=== PATIENT | female | born 1960 | race Caucasian/White ===

== ENCOUNTER 2017-04-16 11:11 | Emergency (ER) | payer MEDICAID ==
[~2017-04-16] VITALS: Ht 154.9 cm; Wt 67.1 kg
[2017-04-16 11:15] VITALS: BP_SYST 159
--- NOTE | 2017-04-16 11:15 | NUR ---
Placed in room 08. Placed on desk monitor, blood pressure machine and pulse oximeter. To gown for exam. Side rails up. Report given to ZAHIRA Quintanilla.
--- NOTE | 2017-04-16 11:20 | NUR ---
ER at bedside examining patient.
--- NOTE | 2017-04-16 11:30 | NUR ---
Pt complains of pounding heart beat since this morning, pt complains of SOB in the morning, pt states "feels pounding on her chest", denies pain. Pt states the pain is not as strong now and is able to breath better. No other injuries/complaints per pt or noted.
[2017-04-16] MEDS ORDERED: LORazepam 1 MG TABLET PO ONE (11:45)
[2017-04-16 12:12] LABS: BASOPHILS # (AUTO) 0.1 K/uL (0.0-0.2); BASOPHILS % (AUTO) 0.7 % (0.0-2.0); EOSINOPHILS # (AUTO) 0.4 K/uL (0.0-0.4); EOSINOPHILS % (AUTO) 4.2 % (0.0-4.0); HEMATOCRIT 41.3 % (36-48); HEMOGLOBIN 13.8 g/dL (12.0-16.0); LYMPHOCYTES # (AUTO) 3.2 K/uL (1.0-5.5); LYMPHOCYTES % (AUTO) 35.6 % (20.5-51.5); MEAN CORPUSCULAR HEMOGLOBIN 31 pg (27-31); MEAN CORPUSCULAR HGB CONC 34 % (32-36); MEAN CORPUSCULAR VOLUME 94 fL (79.0-98.0); MONOCYTES # (AUTO) 0.7 K/uL (0.0-1.0); MONOCYTES % (AUTO) 7.6 % (1.7-9.3); NEUTROPHILS # (AUTO) 4.6 K/uL (1.8-7.7); NEUTROPHILS % (AUTO) 51.9 % (40.0-70.0); PLATELET COUNT (AUTO) 297 K/uL (130-430); RED BLOOD CELL COUNT(AUTO) 4.41 MIL/uL (4.2-6.2); RED CELL DISTRIBUTION WIDTH 12.1 % (9.0-15.0)
--- NOTE | 2017-04-16 12:30 | NUR ---
Pt is resting comfortably in bed with no noted distress or discomfort.
[2017-04-16 12:33] LABS: CALCIUM 9.3 mg/dL (8.4-11.0); CREATININE 0.64 mg/dL (0.55-1.30); POTASSIUM 4.5 mmol/L (3.5-5.1)
[2017-04-16 12:38] LABS: TOTAL BILIRUBIN 0.2 mg/dL (0.0-1.0); TOTAL PROTEIN, SERUM 7.2 g/dL (6.4-8.3)
--- NOTE | 2017-04-16 13:47 | NUR ---
MD ordered more lab work and waiting for results, pt is aware
--- NOTE | 2017-04-16 14:35 | NUR ---
Pt is resting comfortably in bed with no noted distress or discomfort
--- NOTE | 2017-04-16 15:01 | NUR ---
Patient given written and verbal discharge instructions and verbalizes understanding. ER MD discussed with patient the results and treatment provided. Patient in stable condition. ID arm band removed. No Rx given. Patient educated on pain management and to follow up with PMD. Pain Scale 1. Opportunity for questions provided and answered.
[2017-04-16 15:12] VITALS: BP_SYST 135
== END 2017-04-16 15:12 | disposition home or self-care (01) ==
LOC: SED 11:11
DX: F41.9 Anxiety disorder, unspecified (principal); Z88.0 Allergy status to penicillin; Z88.8 Allergy status to other drugs, medicaments and biological substances
CPT/HCPCS: 36415; 71010; 80053; 83880; 84484; 85025; 93005; 99285

== ENCOUNTER 2017-11-28 18:12 | Inpatient (IN) | payer MEDICAID ==
[~2017-11-28] VITALS: Ht 154.9 cm; Wt 64.9 kg
[2017-11-28 18:17] VITALS: BP_SYST 147
[2017-11-28] MEDS ORDERED: MORPHINE 4 MG/ML INJ. SYRINGE IVP ONE ×2 (20:00→21:15)
[2017-11-28] MEDS ORDERED: ONDANSETRON HCL 4 MG/2 ML VIAL IVP ONE ×2 (20:00→21:15)
[2017-11-28] MEDS ORDERED: NACL 0.9% 1,000 ML IV ONE (20:00)
[2017-11-28] MEDS ORDERED: MORPHINE SULFATE 10 MG/ML VIAL ONE ×2 (20:16→21:22)
[2017-11-28 20:39] LABS: BILIRUBIN,URINE NEGATIVE (NEGATIVE); BLOOD, URINE NEGATIVE (NEGATIVE); CLARITY/URINE HAZY (CLEAR); COLOR,URINE YELLOW (YELLOW); GLUCOSE,URINE 3+ (NEGATIVE); KETONES,URINE NEGATIVE (NEGATIVE); LEUKOCYTE ESTERASE ,URINE 1+ (NEGATIVE); NITRITE, URINE NEGATIVE (NEGATIVE); PH,URINE 6.5 (5.0-8.0); PROTEIN URINE NEGATIVE (NEGATIVE); UROBILINOGEN,URINE 0.2 (0.2-1.0)
[2017-11-28 20:46] LABS: BACTERIA,URINE MODERATE /HPF (None Seen); RBC,URINE NONE SEEN /HPF (0-3)
[2017-11-28 20:47] LABS: BASOPHILS # (AUTO) 0.1 K/uL (0.0-0.2); BASOPHILS % (AUTO) 0.6 % (0.0-2.0); EOSINOPHILS # (AUTO) 0.1 K/uL (0.0-0.4); EOSINOPHILS % (AUTO) 0.7 % (0.0-4.0); HEMATOCRIT 43.9 % (36-48); HEMOGLOBIN 14.4 g/dL (12.0-16.0); LYMPHOCYTES % (AUTO) 36.2 % (20.5-51.5); MEAN CORPUSCULAR HEMOGLOBIN 31 pg (27-31); MEAN CORPUSCULAR HGB CONC 33 % (32-36); MEAN CORPUSCULAR VOLUME 94 fL (79.0-98.0); MONOCYTES # (AUTO) 0.5 K/uL (0.0-1.0); MONOCYTES % (AUTO) 6.1 % (1.7-9.3); NEUTROPHILS # (AUTO) 4.7 K/uL (1.8-7.7); NEUTROPHILS % (AUTO) 56.4 % (40.0-70.0); PLATELET COUNT (AUTO) 393 K/uL (130-430); RED BLOOD CELL COUNT(AUTO) 4.68 MIL/uL (4.2-6.2); RED CELL DISTRIBUTION WIDTH 11.7 % (9.0-15.0); WHITE BLOOD COUNT (AUTO) 8.4 K/uL (4.8-10.8)
[2017-11-28 20:47] LABS: MUCUS,URINE None Seen /LPF (None Seen); YEAST,URINE Few /HPF (None Seen)
[2017-11-28 20:55] LABS: CALCIUM 9.9 mg/dL (8.4-11.0); CREATININE 0.83 mg/dL (0.55-1.30); POTASSIUM 3.7 mmol/L (3.5-5.1)
[2017-11-28 20:59] LABS: ALBUMIN 4.3 g/dL (3.4-4.8); TOTAL BILIRUBIN 0.3 mg/dL (0.0-1.0)
[2017-11-28] MEDS ORDERED: DIPHENHYDRAMINE INJ 50 MG/ML VIAL IVP ONE (21:15)
[2017-11-28] MEDS ORDERED: EMPA10TA PO (21:32)
[2017-11-28] MEDS: NACL 0.9% 1,000 ML IV SCH (21:56)
[2017-11-28] MEDS ORDERED: DEXTROSE 50% JECT 50 ML DISP.SYRIN IVP PRN (22:00)
[2017-11-28] MEDS ORDERED: MORPHINE 2 MG/ML INJ. SYRINGE IVP PRN (22:00)
[2017-11-28] MEDS ORDERED: LEVOFLOXACIN 500 MG/D5W 100 ML IV ONE ×2 (22:15→23:38)
[2017-11-28 22:21] VITALS: BP_SYST 143
[2017-11-28] MEDS ORDERED: MINERAL OIL 30 ML UDC PO ONE (22:30)
[2017-11-28] MEDS ORDERED: METOCLOPRAMIDE HCL 10 MG/2 ML VIAL IVP PRN (22:30)
[2017-11-28] MEDS ORDERED: HYDR-4100 PO (23:03)
[2017-11-28] MEDS ORDERED: CIPR-211 PO (23:03)
[2017-11-28] MEDS ORDERED: HYDROmorphone 1 MG INJ. 1 MG/ML AMPUL IVP ONE (23:30)
[2017-11-29 00:04] LABS: BARBITURATE, URINE NEGATIVE (NEG <=200); BENZODIAZEPINE, URINE NEGATIVE (NEG <=150); CANNABINOID, URINE NEGATIVE (NEG <=50); COCAINE, URINE NEGATIVE (NEG <=150); METHAMPHETAMINES SCREEN,URINE NEGATIVE (NEG <=500); PHENCYCLIDINE SCREEN,URINE NEGATIVE (NEG <=25); URINE AMPHETAMINE NEGATIVE (NEG <=500); URINE METHADONE NEGATIVE (NEG <=200)
[2017-11-29 00:05] LABS: OPIATE, URINE POSITIVE (NEG <=100); UR TRICYCLIC ANTIDEPRESSANTS NEGATIVE (NEG <=300); URINE OXYCODONE SCREEN NEGATIVE (NEG <=100); URINE PROPOXYPHENE SCREEN NEGATIVE (NEG <=300)
[2017-11-29] MEDS: ONDANSETRON HCL 4 MG/2 ML VIAL IVP PRN ×2 (01:00→05:55)
[2017-11-29 02:46] VITALS: BP_SYST 148
[2017-11-29 05:52] LABS: BASOPHILS % (AUTO) 0.5 % (0.0-2.0); EOSINOPHILS # (AUTO) 0.1 K/uL (0.0-0.4); EOSINOPHILS % (AUTO) 1.4 % (0.0-4.0); HEMATOCRIT 39.2 % (36-48); HEMOGLOBIN 13.4 g/dL (12.0-16.0); LYMPHOCYTES # (AUTO) 2.6 K/uL (1.0-5.5); LYMPHOCYTES % (AUTO) 35.2 % (20.5-51.5); MEAN CORPUSCULAR HEMOGLOBIN 32 pg (27-31); MEAN CORPUSCULAR HGB CONC 34 % (32-36); MEAN CORPUSCULAR VOLUME 93 fL (79.0-98.0); MONOCYTES # (AUTO) 0.7 K/uL (0.0-1.0); MONOCYTES % (AUTO) 9.1 % (1.7-9.3); NEUTROPHILS # (AUTO) 3.9 K/uL (1.8-7.7); NEUTROPHILS % (AUTO) 53.8 % (40.0-70.0); PLATELET COUNT (AUTO) 364 K/uL (130-430); RED BLOOD CELL COUNT(AUTO) 4.21 MIL/uL (4.2-6.2); RED CELL DISTRIBUTION WIDTH 11.6 % (9.0-15.0); WHITE BLOOD COUNT (AUTO) 7.3 K/uL (4.8-10.8)
[2017-11-29 06:06] LABS: ALBUMIN 3.7 g/dL (3.4-4.8); CALCIUM 9.3 mg/dL (8.4-11.0); CREATININE 0.6 mg/dL (0.55-1.30); POTASSIUM 3.5 mmol/L (3.5-5.1); TOTAL BILIRUBIN 0.4 mg/dL (0.0-1.0)
[2017-11-29] MEDS ORDERED: MINERAL OIL 30 ML UDC PO ONE (06:30)
[2017-11-29] MEDS ORDERED: HYDROmorphone 1 MG INJ. 1 MG/ML AMPUL IM PRN (06:30)
[2017-11-29] MEDS: INSULIN REGULAR, HUMAN 100 UNITS/ML, 10 ML VIAL (novoLIN R) SUBCUT PRN ×2 (06:32→16:58)
[2017-11-29 08:00] VITALS: BP_SYST 148
[2017-11-29] MEDS: PANTOPRAZOLE SODIUM 40 MG TAB PO SCH (08:54)
[2017-11-29] MEDS: NACL 0.9% 1,000 ML IV SCH (11:01)
[2017-11-29] MEDS ORDERED: HYDROmorphone 2 MG/ML VIAL IM PRN (12:15)
[2017-11-29 12:24] VITALS: BP_SYST 154
[2017-11-29] MEDS: HYDROmorphone 2 MG TAB PO PRN ×3 (12:40→21:04)
[2017-11-29] MEDS: PROMETHAZINE HCL 25 MG/ML AMP IVP PRN ×3 (12:41→21:04)
[2017-11-29 15:15] VITALS: BP_SYST 128
[2017-11-29] MEDS: FLUCONAZOLE 200 mg/ NS 100 ML IV SCH (15:43)
[2017-11-29 20:00] VITALS: BP_SYST 146
[2017-11-29] MEDS: LEVOFLOXACIN 500 MG/D5W 100 ML IV SCH (21:03)
[2017-11-30] MEDS: NACL 0.9% 1,000 ML IV SCH ×3 (00:53→23:56)
[2017-11-30] MEDS: HYDROmorphone 2 MG TAB PO PRN ×3 (00:54→11:17)
[2017-11-30] MEDS: PROMETHAZINE HCL 25 MG/ML AMP IVP PRN ×2 (00:54→06:17)
[2017-11-30 01:29] VITALS: BP_SYST 152
[2017-11-30] MEDS: INSULIN REGULAR, HUMAN 100 UNITS/ML, 10 ML VIAL (novoLIN R) SUBCUT PRN ×3 (07:02→19:57)
[2017-11-30 08:00] VITALS: BP_SYST 151
[2017-11-30] MEDS ORDERED: MILK OF MAGNESIA 30 ML UDC PO ONE (08:00)
[2017-11-30] MEDS: PANTOPRAZOLE SODIUM 40 MG TAB PO SCH (08:51)
[2017-11-30] MEDS ORDERED: ZOLPIDEM TARTRATE 5 MG TABLET PO PRN (12:45)
[2017-11-30] MEDS ORDERED: MORPHINE 2 MG/ML INJ. SYRINGE IVP PRN (12:45)
[2017-11-30] MEDS ORDERED: POTASSIUM CHLORIDE 20 MEQ TAB.PRT.SR PO PRN (12:45)
[2017-11-30] MEDS ORDERED: BISACODYL 10 MG/SUPPOSITORY RC PRN (12:45)
[2017-11-30] MEDS ORDERED: LORazepam 2 MG/ML VIAL IVP PRN (12:45)
[2017-11-30] MEDS ORDERED: SIMETHICONE 80 MG TAB.CHEW PO PRN (12:45)
[2017-11-30] MEDS ORDERED: ONDANSETRON HCL 4 MG/2 ML VIAL IM PRN (12:45)
[2017-11-30] MEDS ORDERED: HYDROcodone/ACETAMIN 10-325 MG TAB PO PRN (12:45)
[2017-11-30 13:01] VITALS: BP_SYST 152
[2017-11-30] MEDS ORDERED: ONDANSETRON HCL 4 MG/2 ML VIAL IVP PRN (13:45)
[2017-11-30] MEDS: ONDANSETRON 4 MG ODT TAB PO PRN ×2 (14:45→19:53)
[2017-11-30] MEDS: MORPHINE 2 MG/ML INJ. SYRINGE IVP PRN ×3 (14:45→19:55)
[2017-11-30] MEDS: CYCLOBENZAPRINE HCL 10 MG TABLET (FLEXERIL) PO SCH ×2 (14:52→20:39)
[2017-11-30] MEDS: FLUCONAZOLE 200 mg/ NS 100 ML IV SCH (14:52)
[2017-11-30 16:07] VITALS: BP_SYST 145
[2017-11-30 20:00] VITALS: BP_SYST 149
[2017-11-30] MEDS: LEVOFLOXACIN 500 MG/D5W 100 ML IV SCH (20:40)
[2017-12-01] MEDS: ONDANSETRON 4 MG ODT TAB PO PRN ×2 (00:17→20:38)
[2017-12-01 00:56] VITALS: BP_SYST 161
[2017-12-01] MEDS: MORPHINE 2 MG/ML INJ. SYRINGE IVP PRN ×5 (01:30→20:39)
[2017-12-01] MEDS: NACL 0.9% 1,000 ML IV SCH ×2 (01:33→13:45)
[2017-12-01] MEDS: INSULIN REGULAR, HUMAN 100 UNITS/ML, 10 ML VIAL (novoLIN R) SUBCUT PRN ×3 (06:25→22:04)
[2017-12-01 07:22] LABS: BASOPHILS # (AUTO) 0.1 K/uL (0.0-0.2); BASOPHILS % (AUTO) 0.8 % (0.0-2.0); EOSINOPHILS # (AUTO) 0.3 K/uL (0.0-0.4); EOSINOPHILS % (AUTO) 4.1 % (0.0-4.0); LYMPHOCYTES # (AUTO) 3.2 K/uL (1.0-5.5); LYMPHOCYTES % (AUTO) 44.8 % (20.5-51.5); MEAN CORPUSCULAR HEMOGLOBIN 31 pg (27-31); MEAN CORPUSCULAR HGB CONC 33 % (32-36); MEAN CORPUSCULAR VOLUME 94 fL (79.0-98.0); MONOCYTES # (AUTO) 0.6 K/uL (0.0-1.0); NEUTROPHILS % (AUTO) 41.3 % (40.0-70.0); PLATELET COUNT (AUTO) 341 K/uL (130-430); RED BLOOD CELL COUNT(AUTO) 4.16 MIL/uL (4.2-6.2); RED CELL DISTRIBUTION WIDTH 11.7 % (9.0-15.0); WHITE BLOOD COUNT (AUTO) 7.2 K/uL (4.8-10.8)
[2017-12-01 07:37] VITALS: BP_SYST 138
[2017-12-01 08:05] LABS: CREATININE 0.6 mg/dL (0.55-1.30); PHOSPHORUS 3.8 mg/dL (2.7-4.5); POTASSIUM 3.2 mmol/L (3.5-5.1)
[2017-12-01] MEDS: PANTOPRAZOLE SODIUM 40 MG TAB PO SCH (08:39)
[2017-12-01] MEDS: CYCLOBENZAPRINE HCL 10 MG TABLET (FLEXERIL) PO SCH ×3 (08:39→20:26)
[2017-12-01] MEDS ORDERED: POTASSIUM CHLORIDE 20 MEQ TAB.PRT.SR PO ONE (09:15)
[2017-12-01] MEDS: ONDANSETRON HCL 4 MG/2 ML VIAL IVP PRN ×2 (09:47→16:25)
[2017-12-01] MEDS: DICYCLOMINE HCL 10 MG CAPSULE PO SCH ×2 (09:47→20:26)
[2017-12-01 12:28] VITALS: BP_SYST 145
[2017-12-01] MEDS: FLUCONAZOLE 200 mg/ NS 100 ML IV SCH (15:19)
[2017-12-01 16:50] VITALS: BP_SYST 146
[2017-12-01 20:00] VITALS: BP_SYST 147
[2017-12-01] MEDS: LEVOFLOXACIN 500 MG/D5W 100 ML IV SCH (20:25)
[2017-12-02 00:54] VITALS: BP_SYST 140
[2017-12-02] MEDS: MORPHINE 2 MG/ML INJ. SYRINGE IVP PRN ×4 (05:21→20:59)
[2017-12-02] MEDS: INSULIN REGULAR, HUMAN 100 UNITS/ML, 10 ML VIAL (novoLIN R) SUBCUT PRN ×4 (06:11→21:15)
[2017-12-02] MEDS: ONDANSETRON HCL 4 MG/2 ML VIAL IVP PRN ×4 (06:12→20:59)
[2017-12-02 08:20] VITALS: BP_SYST 143
[2017-12-02] MEDS: PANTOPRAZOLE SODIUM 40 MG TAB PO SCH (08:21)
[2017-12-02] MEDS: CYCLOBENZAPRINE HCL 10 MG TABLET (FLEXERIL) PO SCH ×3 (08:21→20:57)
[2017-12-02] MEDS: DICYCLOMINE HCL 10 MG CAPSULE PO SCH ×2 (08:21→20:57)
[2017-12-02 11:26] VITALS: BP_SYST 137
[2017-12-02] MEDS: FLUCONAZOLE 200 mg/ NS 100 ML IV SCH (14:42)
[2017-12-02 15:20] VITALS: BP_SYST 149
[2017-12-02] MEDS ORDERED: MAGNESIUM CITRATE 300 ML ORAL SOLUTION PO ONE (16:30)
[2017-12-02 20:00] VITALS: BP_SYST 144
[2017-12-02] MEDS: LEVOFLOXACIN 500 MG/D5W 100 ML IV SCH (20:57)
[2017-12-02] MEDS: LUBIPROSTONE 24 MCG CAPSULE PO SCH (20:57)
[2017-12-02 23:44] VITALS: BP_SYST 139
[2017-12-03] MEDS: NACL 0.9% 1,000 ML IV SCH ×2 (00:16→01:56)
[2017-12-03] MEDS: INSULIN REGULAR, HUMAN 100 UNITS/ML, 10 ML VIAL (novoLIN R) SUBCUT PRN ×2 (06:25→11:50)
[2017-12-03] MEDS: MORPHINE 2 MG/ML INJ. SYRINGE IVP PRN (06:30)
[2017-12-03] MEDS: ONDANSETRON HCL 4 MG/2 ML VIAL IVP PRN (06:30)
[2017-12-03 08:00] VITALS: BP_SYST 140
[2017-12-03] MEDS: DICYCLOMINE HCL 10 MG CAPSULE PO SCH (08:16)
[2017-12-03] MEDS: PANTOPRAZOLE SODIUM 40 MG TAB PO SCH (08:16)
[2017-12-03] MEDS: CYCLOBENZAPRINE HCL 10 MG TABLET (FLEXERIL) PO SCH (08:16)
[2017-12-03] MEDS: LUBIPROSTONE 24 MCG CAPSULE PO SCH (08:16)
[2017-12-03 10:53] VITALS: BP_SYST 132
[2017-12-03 11:32] VITALS: BP_SYST 123
[2017-12-03] MEDS ORDERED: LEVO500T20 PO (12:07)
== END 2017-12-03 13:30 | disposition home or self-care (01) | DRG 463 ==
LOC: SED 18:12 → SMU 21:52
PROVIDERS: ADMIT Internal Medicine Hospice and Palliative Medicine; ATTEND Internal Medicine Hospice and Palliative Medicine
DX: N10 Acute pyelonephritis (principal); M35.00 Sjogren syndrome, unspecified; E11.65 Type 2 diabetes mellitus with hyperglycemia; N28.1 Cyst of kidney, acquired; I10 Essential (primary) hypertension; E86.0 Dehydration; K90.0 Celiac disease; M54.5 Low back pain; K21.9 Gastro-esophageal reflux disease without esophagitis; Z88.0 Allergy status to penicillin; Z91.013 Allergy to seafood; Z91.018 Allergy to other foods; Z88.8 Allergy status to other drugs, medicaments and biological substances
CPT/HCPCS: 36415; 72131; 76700-TC; 76770; 80048; 80053; 80307; 81000-TC; 81025; 82962; 83690-TC; 83735-TC; 84100-TC; 85025; 87040-TC; 87086; 96374; 96375; 96376; 99285; J1170; J1200; J1450; J1815; J1956; J2270; J2405; J2550; J7030; Q0162

== ENCOUNTER 2018-05-19 18:46 | Emergency (ER) | payer MEDICAID ==
[~2018-05-19] VITALS: Ht 154.9 cm; Wt 64.4 kg
[~2018-05-19 18:46] MED LIST: EMPA10TA PO; HYDR-4100 PO; LEVO500T20 PO
[2018-05-19 18:52] VITALS: BP_SYST 154
[2018-05-19] MEDS ORDERED: MORPHINE 4 MG/ML INJ. SYRINGE IVP ONE (20:15)
[2018-05-19] MEDS ORDERED: ONDANSETRON HCL 4 MG/2 ML VIAL IVP ONE (20:15)
[2018-05-19 21:40] VITALS: BP_SYST 130
== END 2018-05-19 21:40 | disposition home or self-care (01) ==
LOC: SED 18:46
DX: S63.502A Unspecified sprain of left wrist, initial encounter (principal); E11.9 Type 2 diabetes mellitus without complications; R03.0 Elevated blood-pressure reading, without diagnosis of hypertension; Z88.0 Allergy status to penicillin; Z91.013 Allergy to seafood; Z91.018 Allergy to other foods; Z88.8 Allergy status to other drugs, medicaments and biological substances; W01.0XXA Fall on same level from slipping, tripping and stumbling without subsequent striking against object, initial encounter; Y93.89 Activity, other specified; Y92.89 Other specified places as the place of occurrence of the external cause; Y99.8 Other external cause status
CPT/HCPCS: 29125; 73090; 73110; 96374; 96375; 99284; J2270; J2405

== ENCOUNTER 2018-06-03 14:10 | Emergency (ER) | payer MEDICAID ==
[~2018-06-03] VITALS: Ht 154.9 cm; Wt 67.1 kg
[2018-06-03 14:14] VITALS: BP_SYST 155
[2018-06-03 17:33] VITALS: BP_SYST 155
== END 2018-06-03 17:33 | disposition short-term general hospital (02) ==
LOC: SED 14:10
DX: S63.502A Unspecified sprain of left wrist, initial encounter (principal); S60.222A Contusion of left hand, initial encounter; R20.2 Paresthesia of skin; E11.9 Type 2 diabetes mellitus without complications; Z91.02 Food additives allergy status; Z88.0 Allergy status to penicillin; Z91.013 Allergy to seafood; Z88.8 Allergy status to other drugs, medicaments and biological substances; Z79.899 Other long term (current) drug therapy; W19.XXXA Unspecified fall, initial encounter; Y93.89 Activity, other specified; Y92.89 Other specified places as the place of occurrence of the external cause; Y99.8 Other external cause status
CPT/HCPCS: 99285

== ENCOUNTER 2018-11-19 15:50 | Emergency (ER) | payer MEDICAID ==
[~2018-11-19] VITALS: Ht 154.9 cm; Wt 65.8 kg
[2018-11-19 16:48] VITALS: BP_SYST 144
[2018-11-19] MEDS ORDERED: INSULIN REGULAR, HUMAN 10 UNITS/0.1 ML INJ SUBCUT ONE (17:45)
[2018-11-19 17:49] LABS: BILIRUBIN,URINE NEGATIVE (NEGATIVE); BLOOD, URINE NEGATIVE (NEGATIVE); CLARITY/URINE CLEAR (CLEAR); GLUCOSE,URINE 3+ (NEGATIVE); KETONES,URINE NEGATIVE (NEGATIVE); LEUKOCYTE ESTERASE ,URINE NEGATIVE (NEGATIVE); NITRITE, URINE NEGATIVE (NEGATIVE); PROTEIN URINE NEGATIVE (NEGATIVE); UROBILINOGEN,URINE 0.2 (0.2-1.0)
[2018-11-19 17:52] LABS: COLOR,URINE STRAW (YELLOW)
[2018-11-19 18:04] LABS: BACTERIA,URINE FEW /HPF (None Seen); RBC,URINE NONE SEEN /HPF (0-3); WBC,URINE 0-3 /HPF (0-3)
[2018-11-19 18:05] LABS: MUCUS,URINE None Seen /LPF (None Seen); YEAST,URINE Few /HPF (None Seen)
[2018-11-19 18:23] LABS: BASOPHILS # (AUTO) 0.1 K/uL (0.0-0.2); BASOPHILS % (AUTO) 1.1 % (0.0-2.0); EOSINOPHILS # (AUTO) 0.1 K/uL (0.0-0.4); EOSINOPHILS % (AUTO) 1.2 % (0.0-4.0); HEMATOCRIT 42.5 % (36-48); HEMOGLOBIN 14.3 g/dL (12.0-16.0); LYMPHOCYTES # (AUTO) 2.4 K/uL (1.0-5.5); MEAN CORPUSCULAR HEMOGLOBIN 32 pg (27-31); MEAN CORPUSCULAR HGB CONC 34 % (32-36); MEAN CORPUSCULAR VOLUME 94 fL (79.0-98.0); MONOCYTES # (AUTO) 0.4 K/uL (0.0-1.0); MONOCYTES % (AUTO) 5.7 % (1.7-9.3); NEUTROPHILS # (AUTO) 3.7 K/uL (1.8-7.7); PLATELET COUNT (AUTO) 348 K/uL (130-430); RED BLOOD CELL COUNT(AUTO) 4.52 MIL/uL (4.2-6.2); RED CELL DISTRIBUTION WIDTH 11.4 % (9.0-15.0); WHITE BLOOD COUNT (AUTO) 6.7 K/uL (4.8-10.8)
[2018-11-19 18:32] LABS: CALCIUM 9.5 mg/dL (8.4-11.0); CREATININE 0.65 mg/dL (0.55-1.30); POTASSIUM 3.8 mmol/L (3.5-5.1)
[2018-11-19 18:37] LABS: ALBUMIN 3.9 g/dL (3.4-4.8); TOTAL BILIRUBIN 0.3 mg/dL (0.0-1.0)
[2018-11-19 19:05] VITALS: BP_SYST 144
== END 2018-11-19 19:05 | disposition home or self-care (01) ==
LOC: SED 15:50
DX: E11.65 Type 2 diabetes mellitus with hyperglycemia (principal); R03.0 Elevated blood-pressure reading, without diagnosis of hypertension; Z88.0 Allergy status to penicillin; Z91.013 Allergy to seafood; Z88.8 Allergy status to other drugs, medicaments and biological substances; Z79.899 Other long term (current) drug therapy
CPT/HCPCS: 36415; 80053; 81000; 82962; 85025; 93005; 96372; 99284; J1815; 99283